=== PATIENT | male | born 1980 | race Caucasian/White ===

== ENCOUNTER 2020-01-13 14:56 | Emergency (ER) | payer OTHER, SELFPAY ==
--- NOTE | ~2020-01-13 | XR_ITS ---
XR shoulder LT min 2V 01/13/2020 15:53 Indication: Left subacromial pain for one week Procedure: 4 views of the left shoulder Comparison: No prior studies for comparison. Findings: No fracture or traumatic malalignment. No significant soft tissue abnormality. Visualized l mandie parenchyma is unremarkable. Impression: 1: No acute bone or joint abnormality. Reviewed, dictated and finalized at location A. Impression: 1: No acute bone or joint abnormality.
[2020-01-13 15:14] VITALS: BP 96/67; PULSE 98; RESP 13; TEMP 36.7; O2SAT 100
--- NOTE | 2020-01-13 15:39 | ED.UPPEXIN ---
HPI - Extremity Injury (Upper) General Chief Complaint: Extremity Injury, Upper Stated Complaint: Busted L shoulder Source: patient Mode of arrival: ambulatory Limitations: no limitations History of Present Illness HPI narrative: 39 y.o. was leaning on his left extended arm one week ago when he felt a pop. After about an hour he began having pain, centrally located in lateral subacromial region radiating to the upper scapula and trepezius ridge. Pain is increased with forward flexion and abduction, decreased with keeping arm adducted and internally rotated. Sleeping on either side makes the pain worse. He only gets about 2 hours of sleep because of pain. He takes Tylenol PM for pain. 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 No previous hx. of shoulder pain. Also, one week ago had a swollen bump in his left groin (which has since resolved) along with a milky d.c. from penis for a day or two with minor discomfort with urination. He discovered a bump behind the left testicle which his slightly tender. His uncle and cousin have both had testicular CA. Other injuries: none Handedness: right Place: home Severity: moderate Related Data Home Medications Medication Instructions Recorded Confirmed No Home Medications 01/13/20 01/13/20 Allergies Allergy/AdvReac Type Severity Reaction Status Date / Time No Known Allergies Allergy Verified 01/13/20 15:13 Review of Systems Constitutional: Constitutional: Denies chills and Denies fever(s) Gastrointestinal: Gastrointestinal: Denies nausea and Denies vomiting Genitourinary: Genitourinary: Denies genital lesions Musculoskeletal: Comments: no left elbow or wrist pain. No neck pain. Neurologic: Comments: No LUE numbness/weakness PMFSH Past Medical History Medical History (Updated 01/13/20 @ 16:13 by Elvis Lee MD) Patient denies significant medical history Family History Family History (Updated 01/13/20 @ 15:54 by Elvis Lee MD) Mother Hypertension Cerebrovascular accident Social History Social History (Updated 01/13/20 @ 15:55 by Elvis Lee MD) Years smoked: 10 Smoking status: Current every day smoker Alcohol use details: on rare occasion Substance use type: marijuana Other substance usage details: several times a week Occupation/Education: unemployed Exam Narrative: Exam Narrative: Holding left arm internally rotated, adducted. Grimaces with any movement of the shoulder or elbow. Const: Orientation/consciousness: patient oriented x3 Neck: Other: Tender left lateral posterior neck. No spinous process tenderness. Full painless head ROM. Spurling's maneuver is negative. Chest: Chest palpation & inspection: abnormal inspection of the chest : Penis: No normal penis, Yes circumcised and No Genital lesions present Scrotum: no scrotal swelling Testes: epididymal tenderness (smooth mobile nodule distal left epididymis; minimal tenderness. ), no testicular swelling and no testicular tenderness (No testicular nodules or swelling) Back/Spine/Pelvis: Other: No shoulder discoloration, swelling or deformity. No scapular winging. Shoulder pain with ext. rotation beyond neutral. Passively flexes left shoulder to 90 degrees, limited by pain. Passive abduction when supine to 80 degrees, limited by pain, exacerbated with any internal/external rotation. Tender left lateral subacromial region, supraspinatus and along trapezius ridge up to the cervical spine. Unable to resist elbow flex/ext secondary to shoulder pain. Skin: Other: brisk LE cap. refill. Neuro: Other: sensory/ motor exam LUE intact. Course Vital Signs Vital signs: Vital Signs Temperature 36.7 C 01/13/20 15:14 Pulse Rate 98 01/13/20 15:14 Respiratory Rate 13 01/13/20 15:14 Blood Pressure 96/67 L 01/13/20 15:14 Pulse Oximetry 100 01/13/20 15:14 Temperature 36.7 C 01/13/20 15:14
[2020-01-13 16:20] VITALS: BP 116/68; PULSE 80; RESP 14; O2SAT 100
== END 2020-01-13 16:20 | disposition home or self-care (01) ==
PROVIDERS: Emergency Provider Family Medicine; PCP Nurse Practitioner Family
DX: M25.512 Pain in left shoulder (principal); R22.2 Localized swelling, mass and lump, trunk; R36.9 Urethral discharge, unspecified
CPT/HCPCS: 73030; 99282; 99283; A4565

== ENCOUNTER 2020-01-14 09:54 | Outpatient (CLI) | payer OTHER, SELFPAY ==
--- NOTE | ~2020-01-14 | US_ITS ---
EXAMINATION: US scrotum doppler DATE: 01/14/2020 10:45 INDICATION: Left testicular pain. TECHNIQUE: Grayscale and Doppler ultrasound images of the testes were obtained. COMPARISON: None. FINDINGS: The right testis measures 4.6 x 2.6 x 1.8 cm. The left testis measures 4.1 x 2.7 x 2.2 cm. There is normal vascular flow to both testes. The right epididymis is normal with normal vascular stacia w. The left epididymis demonstrates enlargement of the tail, which is hypoechoic and heterogeneous. T here is no varicocele or hydrocele. IMPRESSION: 1. Left-sided epididymitis. Reviewed, dictated and finalized at location A. IMPRESSION: 1. Left-sided epididymitis.
== END 2020-01-14 09:55 | disposition home or self-care (01) ==
LOC: CHSIMG 09:58
PROVIDERS: PCP Nurse Practitioner Family; Visit Provider Nurse Practitioner Family
DX: N50.819 Testicular pain, unspecified (principal); R82.90 Unspecified abnormal findings in urine
CPT/HCPCS: 76870; 87086; 87088; 87491; 87591; 87661; 93976

== ENCOUNTER 2020-01-15 14:56 | Outpatient (RCR) | payer OTHER, SELFPAY ==
--- NOTE | 2020-01-15 16:07 | PTOPEVAL ---
Thank you for referring Jesus Goodman to [facility]. Please review, sign, date and return this plan of care SOFIA. I agree with and certify that the following plan of care is medically necessary. Referring Physician Date Admitting Provider: Attending Provider: Krysten Carvajal NP Referring Provider: *PT Outpatient Evaluation Start: 01/15/20 15:05 Freq: Status: Active Protocol: Document 01/15/20 15:06 MANA (Rec: 01/15/20 15:39 MANA [id number]) Therapy Assessment Status Assessment Status Assessment Status Evaluation Outpatient Past Medical History Musculoskeletal History Hx Other Musculoskeletal Disorders Yes: RIGHT KNEE Evaluation Information Problem Diagnosis left shoulder pain Onset 12/31/19 Subjective Information Pt. reports that he was making Query Text:As Reported By Patient/ his bed and felt a pop in the Family left shoulder and shoulder blade. He reports that pain levels have remained the same since the iniital incident. He recieved a cortisone injection in the buttock yesterday without pain relief. He states that he is having trouble sleeping. He reports that pain is in the left shoulder blade, into the collar bone and at the front of the left shoulder. He reports that his goal is to decrease his left shoulder pain. Prior Level of Function Activity Level (Last 3 Months) Occupation unemployed Hand Dominance Right Activity of Daily Living Ability Independent Indoor/Home Mobility Independent Community Mobility Independent Stairs Ability Independent Functional Cognition (Planning, Shopping Independent , Taking Medications) Cooking Yes Cleaning Yes Laundry Yes Shopping Yes Driving Yes Pain Assessment Timing of Pain Assessment Timing of Pain Assessment Pre-Treatment Pain Scale Pain Scale Used Numeric (1 - 10) Self Report Pain Assessment Left Shoulder(s) Reported Pain Level 7 Pain Description Burning,Tender on Palpation Pain Frequency Acute Lowest Pain Intensity 4 Greatest Pain Intensity 9 Pain Aggravating Factors
--- NOTE | 2020-02-02 09:08 | PCPTNOTE ---
patient called and cancelled appt today. BOB
--- NOTE | 2020-02-13 09:11 | PCPTNOTE ---
patient cancelled his appt for today for he would rather come in twice next week. BOB
--- NOTE | 2020-02-18 12:42 | PTOPEVAL ---
Thank you for referring Jesus Goodman to [facility]. Please review, sign, date and return this plan of care SOFIA. I agree with and certify that the following plan of care is medically necessary. Referring Physician Date Admitting Provider: Attending Provider: Krysten Carvajal NP Referring Provider: ROEL Outpatient Evaluation Start: 01/15/20 15:05 Freq: Status: Active Protocol: Document 02/18/20 09:00 JOSE CARLOS (Rec: 02/18/20 12:41 JOSE CARLOS [id number]) Therapy Assessment Status Assessment Status Assessment Status Re-evaluation Outpatient Past Medical History Musculoskeletal History Hx Other Musculoskeletal Disorders Yes: RIGHT KNEE Evaluation Information Problem Diagnosis L shoulder pain Additional Evaluation Detail quick dash = 20% functionally declined Subjective Information patient reports he feels Query Text:As Reported By Patient/ better this date. he reports Family overall he has noticed a large improvement in his mobility, strength, and use of the L shoulder/UE. however, he still has pain at times, and especially with reaching behind head and back. he reports he also has difficulty lifting objects up in front of him and to his side. Pain Assessment Timing of Pain Assessment Timing of Pain Assessment Assessment Pain Scale Pain Scale Used Numeric (1 - 10) Self Report Pain Assessment Left Shoulder(s) Reported Pain Level 2 Greatest Pain Intensity 4 Pain Score Pain Score 2: Self Report Upper Extremity Range of Motion General Upper Extremity Range of Motion Gross Upper Extremity Range of Motion L shoulder AROM flexion = 170 Comments degrees. R shoulder AROM flexion = 175 degrees L shoulder functional ER reaches the upper throacic spine, but with increased pain and reduced shoulder extension compared to the R shoulder. L shoulder functional IR reach to the mid thoracic spine with mild increased pain. Upper Extremity Muscle Strength Testing General Upper Extremity Strength Gross Upper Extremity Strength Comments R shoulder and elbow strength 5/5 overall L shoulder flex = 4/5, L sh
--- NOTE | 2020-02-26 09:45 | PCPTNOTE ---
patient called and cancelled appt today. BOB
== END 2020-03-01 10:10 | disposition home or self-care (01) ==
LOC: CHSPT 14:56
PROVIDERS: PCP Nurse Practitioner Family; Visit Provider Nurse Practitioner Family
DX: M25.512 Pain in left shoulder (principal)
CPT/HCPCS: 97014; 97110; 97161; G0283

== ENCOUNTER 2020-03-01 09:35 | Emergency (ER) | payer OTHER, SELFPAY ==
[2020-03-01 09:45] VITALS: BP 160/62; PULSE 89; RESP 20; TEMP 36.5; O2SAT 100
--- NOTE | 2020-03-01 09:55 | ED.SKABFB ---
HPI - Skin/Abscess/Foreign Bdy General Chief complaint: Skin/Abscess/Foreign Body Stated complaint: possible staph on knee Source: patient Mode of arrival: ambulatory Limitations: no limitations History of Present Illness HPI narrative: this is a 39-year-old male with no past medical history presents with a lesion on the anterior left knee that is weeping yellow fluid it is scabbed over with surrounding area of erythema currently no fever or chills there is no induration there is just a scab with some yellow discharge no fluctuance the area is warm red mildly tender to touch with good range of motion is any no shortness of breath no chest pain, not sure how he acquired but maybe was while working he was kneeling causing the lesion to his left anterior knee. complaint: lesion Onset (ago): day(s) Tetanus up to date: no Location: LLE Severity: mild Pain Consistency: constant Relieving factors: none Exacerbating factors: none Context: none Associated symptoms: denies other symptoms Treatments prior to arrival: none Related Data Allergies Allergy/AdvReac Type Severity Reaction Status Date / Time No Known Allergies Allergy Verified 02/02/20 08:55 Review of Systems Review of Systems: All systems reviewed & are unremarkable except as noted in HPI and below PMFSH Past Medical History Medical History Patient denies significant medical history Surgical History Surgical History H/O knee surgery right knee Family History Family History Mother Hypertension Cerebrovascular accident Social History Social History Smoking packs per day: 1 Smoking cigarettes per day: 20.0 Years smoked: 10 Smoking pack-years: 10.00 Smoking status: Current every day smoker Alcohol intake: never Substance use: current Substance use type: marijuana Other substance usage details: several times a week Gender identity (if verbalized by the patient): Male Spiritual care concerns: No Exam Const: General: no acute distress and alert Orientation/consciousness: patient oriented x3 HENMT: Head: normal to inspection Eyes: Conjunctivae: conjunctivae normal Pupils: Equal, round and reactive pupils present Neck: Neck: normal visual inspection, no lymphadenopathy and no meningeal signs Chest: Chest palpation & inspection: normal inspection of the chest Resp: Effort & Inspection: normal respiratory effort Auscultation: clear to auscultation bilaterally Cardio: Rate: regular rate Rhythm: regular rhythm GI: Auscultation: normal bowel sounds Back/Spine/Pelvis: Back: no CVA tenderness Skin: Wounds: wounds noted ( Wound with scab with some yellow drainage from anterior left knee) Neuro: General: patient oriented x3 Extrem: General: normal to inspection Psych: Mental Status: mental status grossly normal Affect: normal affect Thought content: Yes Normal thought content present Course Course Emergency Course: will administer ceftriaxone 1 g IM along with some Sunny cell to update him with his tetanus vaccine and advised that we will be discharging with p.o. antibiotics and with the understanding to follow with his primary care physician if the lesion appears to worsen. Vital Signs Vital signs: Vital Signs Temperature 36.5 C 03/01/20 09:45 Pulse Rate 89 03/01/20 09:45 Respiratory Rate 03/01/20 09:45 Blood Pressure 160/62 H 03/01/20 09:45 Pulse Oximetry 100 03/01/20 09:45 Temperature 36.5 C 03/01/20 09:45 Pulse Rate 89 03/01/20 09:45 Respiratory Rate 20 03/01/20 09:45 Blood Pressure 160/62 H 03/01/20 09:45 Pulse Oximetry 100 03/01/20 09:45 Critical Care Time Critical Care Time Critical Care Time: No Discharge Plan Discharge Clinical Impression:
[2020-03-01] MEDS: TETANUS,DIPHTHERIA,AC PERTUSSIS ADULT 0.5 ML (ADACEL) IM (10:02)
[2020-03-01] MEDS: cefTRIAXone 1 GM VIAL IM (10:16)
== END 2020-03-01 10:17 | disposition home or self-care (01) ==
PROVIDERS: Emergency Provider Emergency Medicine; PCP Nurse Practitioner Family
DX: L03.116 Cellulitis of left lower limb (principal)
CPT/HCPCS: 90471; 90715; 96372; 99283; J0696

== ENCOUNTER 2020-05-31 09:26 | Outpatient (CLI) | payer OTHER, SELFPAY ==
[2020-05-31 10:55] LABS: Alanine Aminotransferase 16 U/L (16-63); Alkaline Phosphatase 82 U/L (46-116); Aspartate Amino Transferase < 10 U/L (15-37); Bilirubin Direct 0.2 mg/dL (0-0.2); Bilirubin,Total 0.7 mg/dL (0.00-1.00); Total Protein 7.2 g/dL (6.4-8.2)
[2020-05-31 11:14] LABS: HIV 1 P24 AG Negative (Negative); HIV 1/2 AB Negative (Negative)
[2020-06-02 19:07] LABS: RPR Screen Non-Reactive (Non-Reactive)
[2020-06-03 07:00] LABS: Hepatitis A Antibody IgM Nonreactive; Hepatitis B Core Antibody Nonreactive (Nonreactive); Hepatitis B Surface Antigen Nonreactive (Nonreactive); Hepatitis C Signal to Cutoff 0.35 ratio (<1.00); Hepatitis C Virus Antibody Nonreactive (Nonreactive)
== END 2020-05-31 09:27 | disposition home or self-care (01) ==
PROVIDERS: PCP Nurse Practitioner Family; Visit Provider Nurse Practitioner Family
DX: R30.0 Dysuria (principal); Z11.3 Encounter for screening for infections with a predominantly sexual mode of transmission; Z86.19 Personal history of other infectious and parasitic diseases; N50.819 Testicular pain, unspecified
CPT/HCPCS: 36415; 80074; 80076; 86592; 86703; 87210; 87491; 87536; 87591; 87661

== ENCOUNTER 2020-06-24 09:19 | Emergency (ER) | payer OTHER, SELFPAY ==
[2020-06-24 09:20] VITALS: BP 127/69; PULSE 79; RESP 20; TEMP 37.1; O2SAT 98
--- NOTE | 2020-06-24 09:36 | ED.SKABFB ---
HPI - Skin/Abscess/Foreign Bdy General Chief complaint: Skin/Abscess/Foreign Body Stated complaint: possible spider bite on abd L side Source: patient History of Present Illness HPI narrative: Patient presents with a skin lesion in area approximately 3cm in diameter with surrounding erythema currently there is there is minimal drainage of green discharge it started 2 to 3 days ago after which he believes was insect bite currently there is no fever or chills no shortness of breath patient is up-to-date with his tetanus vaccine. complaint: insect bite/sting and lesion (23 cm lesion left hip area) Onset (ago): day(s) Tetanus up to date: yes Severity: mild Pain Consistency: constant Relieving factors: none Exacerbating factors: none Context: witnessed insect bite Related Data Allergies Allergy/AdvReac Type Severity Reaction Status Date / Time No Known Allergies Allergy Verified 06/24/20 09:36 Review of Systems Review of Systems: All systems reviewed & are unremarkable except as noted in HPI and below PMFSH Past Medical History Medical History Epididymal pain Epididymitis History of gonorrhea Patient denies significant medical history Surgical History Surgical History H/O knee surgery right knee Family History Family History Mother Hypertension Cerebrovascular accident Social History Social History Smoking packs per day: 1 Smoking cigarettes per day: 20.0 Years smoked: 10 Smoking pack-years: 10.00 Smoking status: Current every day smoker Alcohol intake: never Substance use: current Substance use type: marijuana Other substance usage details: several times a week Gender identity (if verbalized by the patient): Male Spiritual care concerns: No Exam Const: General: no acute distress Course Course Emergency Course: Patient appears comfortable up-to-date with his tetanus and advised that we would start give him 1 g IM injection of ceftriaxone and will be sending medication to his pharmacy. Critical Care Time Critical Care Time Critical Care Time: No Discharge Plan Discharge Clinical Impression: Abscess of skin or subcutaneous tissue, Cellulitis Patient Disposition: Home, Self-Care Condition: Stable Instructions: Antibiotic Form, Cellulitis (ED), Abscess (ED) Additional Instructions: Take medicine as prescribed, and follow-up with primary care physician if symptoms persist or worsen. Prescriptions: New amoxicillin-pot clavulanate [Augmentin] 875-125 mg tablet 1 tablet PO Q12H Qty: 20 RF: 0 mupirocin 2 % ointment 1 applic topical TID 7 Days Qty: 15 RF: 0 Follow-up/Referrals: Jorge Killian MD [Primary Care Provider] - Time of Disposition: 09:41
[2020-06-24] MEDS: cefTRIAXone 1 GM VIAL IM (09:44)
[2020-06-24] MEDS: LIDOCAINE HCL 1% LOCAL INJ 20 ML VIAL (09:46)
== END 2020-06-24 10:00 | disposition home or self-care (01) ==
PROVIDERS: Emergency Provider Emergency Medicine; PCP Internal Medicine
DX: L02.91 Cutaneous abscess, unspecified (principal)
CPT/HCPCS: 96372; 99283; J0696

== ENCOUNTER 2021-01-25 13:25 | Emergency (ER) | payer OTHER, SELFPAY ==
[2021-01-25 13:30] VITALS: BP 139/82; PULSE 102; RESP 20; TEMP 36.6; O2SAT 96
--- NOTE | 2021-01-25 13:56 | ED.MALEGU ---
HPI - Male Genitourinary General Chief complaint: Urogenital-Male Stated complaint: urinary problems Time Seen by Provider: 01/25/21 13:56 Source: patient Mode of arrival: ambulatory Limitations: no limitations History of Present Illness HPI Narrative: 40-year-old man comes in today complaining of pain with urination and penile discharge that started few weeks ago but has since stopped. he states he is having no symptoms at present other than some difficulty starting urination. he denies hematuria, nausea, vomiting, abdominal pain, fever. He states the symptoms are similar to STD for which he was treated last year. He states he has a history of a cyst in his left epididymis and a family history of testicle cancer but he is not having any scrotal pain. MD Complaint: penile discharge and dysuria Related Data Home Medications Medication Instructions Recorded Confirmed No Home Medications 01/25/21 01/25/21 Allergies Allergy/AdvReac Type Severity Reaction Status Date / Time No Known Allergies Allergy Verified 06/24/20 09:36 Review of Systems Review of Systems: All systems reviewed & are unremarkable except as noted in HPI and below Constitutional: Constitutional: Denies chills and Denies fever(s) Comments: Denies night sweats Cardiovascular: Cardiovascular: Denies chest pain and Denies radiating jaw, neck or arm pain Respiratory: Respiratory: Denies cough and Denies dyspnea Gastrointestinal: Gastrointestinal: Denies abdominal pain, Denies nausea and Denies vomiting Genitourinary: Genitourinary: Denies hematuria, Reports dysuria, Reports penile discharge and Denies urinary frequency Musculoskeletal: Musculoskeletal: Denies back pain, Denies arthralgias and Denies joint swelling Integumentary/Breasts: Skin/Breast: Denies pruritus, Denies erythema and Denies rash PMFSH Past Medical History Medical History Epididymal pain Epididymitis History of gonorrhea Patient denies significant medical history Surgical History Surgical History H/O knee surgery right knee Family History Family History Mother Hypertension Cerebrovascular accident Social History Social History Smoking packs per day: 1 Smoking cigarettes per day: 20.0 Years smoked: 10 Smoking pack-years: 10.00 Smoking status: Current every day smoker Alcohol intake: never Substance use: current Substance use type: marijuana Other substance usage details: several times a week Gender identity (if verbalized by the patient): Male Spiritual care concerns: No Exam Const: General: no acute distress and alert Orientation/consciousness: patient oriented x3 Limitations: altered mental status Eyes: Conjunctivae: conjunctivae normal Pupils: Equal, round and reactive pupils present EOM: EOMs intact bilaterally Resp: Effort & Inspection: normal respiratory effort and not labored Auscultation: clear to auscultation bilaterally, no rales, no rhonchi and no wheezes Cardio: Rate: regular rate Rhythm: regular rhythm Heart sounds: no murmurs : Male General Exam: Yes normal external exam and No Genital lesions present Penis: Yes normal penis and Yes circumcised Scrotum: scrotum normal Testes: epididymides normal, no epidiymal tenderness and no testicular swelling Skin: General skin exam: normal color, no jaundice and no pallor Rashes: no rashes Neuro: General: patient oriented x3, moves all extremities and no focal motor deficits Cranial nerves: Yes Nystagmus not present Speech: normal speech Gait exam (Neuro): Normal gait present Extrem: General: normal to inspection and no clubbing, cyanosis or edema Psych: Appearance: grossly normal and well kempt Mental Status: mental status grossly normal Affect
[2021-01-25] MEDS: AZITHROMYCIN 250 MG TABLET 1000 MG PO (14:15)
[2021-01-25] MEDS: cefTRIAXone 500 MG VIAL IM (14:15)
[2021-01-25 14:29] VITALS: RESP 16
== END 2021-01-25 14:30 | disposition home or self-care (01) ==
PROVIDERS: Emergency Provider Emergency Medicine
DX: R30.0 Dysuria (principal)
CPT/HCPCS: 96372; 99283; A9270; J0696